=== PATIENT | female | born 1970 | race Asian ===

== ENCOUNTER 2021-12-03 14:15 | Emergency (ER) | payer OTHER ==
[~2021-12-03] VITALS: Ht 165.1 cm; Wt 65.0 kg
[2021-12-03 14:39] VITALS: BP 143/89
== END 2021-12-03 16:10 | disposition left against medical advice (07) ==
LOC: ER 14:15
DX: Z53.21 Procedure and treatment not carried out due to patient leaving prior to being seen by health care provider (principal); I49.9 Cardiac arrhythmia, unspecified
CPT/HCPCS: 93005